=== PATIENT | female | born 1945 | race Caucasian/White ===

== ENCOUNTER 2023-07-26 08:58 | Emergency (ER) | payer BC, OTHER ==
[~2023-07-26] VITALS: Ht 165.1 cm; Wt 68.0 kg
[2023-07-26 09:02] VITALS: BP_SYST 164; PULSE 88; RESP 18; TEMP 97.7; O2SAT 98
[2023-07-26] MEDS: DIPHTH,PERTUSS(ACELL),TET VAC 0.5 ML VIAL (Tdap) I.M. ONE (10:07)
[2023-07-26] MEDS ORDERED: LIDOCAINE JELLY 5 ML TUBE MM ONE (10:15)
[2023-07-26] MEDS: LIDOCAINE 2% JELLY UROJECT 10 ML MM ONE (10:16)
[2023-07-26 11:16] VITALS: BP_SYST 145; PULSE 87; RESP 16; TEMP 98; O2SAT 97
== END 2023-07-26 11:20 ==
LOC: SED 08:58
DX: S01.01XA Laceration without foreign body of scalp, initial encounter (principal); R51.9 Headache, unspecified; Z23 Encounter for immunization; Z88.0 Allergy status to penicillin; Z88.8 Allergy status to other drugs, medicaments and biological substances; W18.39XA Other fall on same level, initial encounter; Y93.89 Activity, other specified; Y92.89 Other specified places as the place of occurrence of the external cause; Y99.8 Other external cause status
CPT/HCPCS: 70450-TC; 90715; 99285